=== PATIENT | male | born 1940 | race Caucasian/White ===

== ENCOUNTER 2016-10-18 07:15 | Inpatient (IN) | payer MEDICARE, BC ==
[~2016-10-18] VITALS: Ht 182.9 cm; Wt 81.5 kg
[2016-10-18] MEDS ORDERED: TOPROL XL 50MG50 MG PO (07:33)
[2016-10-18] MEDS ORDERED: ASPIRIN E.C. 8181 MG PO (07:33)
[2016-10-18] MEDS ORDERED: PRINIVIL10 MG PO (07:33)
[2016-10-18] MEDS ORDERED: FISH OIL 1000MG1 CAP PO (07:34)
[2016-10-18] MEDS ORDERED: FORTAMET500 M1 PO (07:34)
[2016-10-18 07:57] LABS: BASO # 0.1 (0.0-0.2); BASO % 0.9 % (0.0-2.0); EOS # 0.5 (0.0-0.7); EOS % 8.1 % (0-4.0); GRAN # 3.4 (1.4-6.5); GRAN % 59.6 % (42.2-75.2); HEMATOCRIT 43.5 % (42.0-52.0); HEMOGLOBIN 14.9 g/dl (13.5-18.0); LYMPH # 1.2 (1.2-3.4); LYMPH % 21.6 % (20.0-51.0); MEAN CELL VOLUME 95 fl (80.0-100.0); MEAN CORPUSCULAR HEMOGLOBIN 33 pg (27.0-31.0); MEAN CORPUSCULAR HGB CONC 34 g/dl (33.0-37.0); MEAN PLATELET VOLUME 11.4 fl (7.4-10.4); MONO # 0.6 (0.1-0.6); MONO % 9.6 % (1.7-9.3); PLATELET COUNT 213 K/mm3 (130-400); RED BLOOD COUNT 4.59 M/mm3 (4.20-5.60); REDCELL DISTRIBUTION WIDTH-CV 12.8 % (11.5-14.5); WHITE BLOOD COUNT 5.7 K/mm3 (4.8-10.8)
[2016-10-18] MEDS ORDERED: MULTI VITAMINS1 TAB PO (08:00)
[2016-10-18] MEDS ORDERED: AMARYL4 MG PO (08:00)
[2016-10-18] MEDS ORDERED: TOPROL XL 25MG25 MG PO (08:00)
[2016-10-18] MEDS ORDERED: LIPITOR 80MG80 MG PO (08:01)
[2016-10-18] MEDS ORDERED: GLUCOPHAGE500 MG/TAB PO (08:01)
[2016-10-18 08:13] LABS: ADJUSTED CALCIUM 9.5 mg/dL (8.4-10.2); ALANINE AMINOTRANSFERASE 29 U/L (21-72); ALBUMIN 4.3 gm/dL (3.5-5.0); ALKALINE PHOSPHATASE 100 U/L (50-136); ANION GAP 15 mmol/L (7-16); BILIRUBIN,TOTAL 0.5 mg/dL (0.0-1.0); BLOOD UREA NITROGEN 22 mg/dL (9-20); CALCIUM 9.7 mg/dL (8.4-10.2); CARBON DIOXIDE 22 mmol/L (22-30); CHLORIDE 102 mmol/L (98-107); CREATINE KINASE 32 U/L (55-170); CREATININE, serum 0.98 mg/dL (0.66-1.25); GLUCOSE 229 mg/dL (74-106); POTASSIUM 4.8 mmol/L (3.4-5.0); SODIUM 139 mmol/L (137-145); TOTAL PROTEIN 7.1 gm/dL (6.4-8.2)
[2016-10-18 08:21] LABS: INR 1.1 (0.8-3.0)
[2016-10-18 08:24] LABS: B-TYPE NATRIURETIC PEPTIDE 1240 pg/mL (0-450); TROPONIN-I < 0.012 ng/mL (0.000-0.034)
[2016-10-18 11:01] VITALS: BP 131/77; PULSE 78; TEMP 97.9
[2016-10-18 17:15] VITALS: BP 117/68; PULSE 88; TEMP 97.9
[2016-10-18 19:30] VITALS: BP 111/79; PULSE 74; TEMP 98.7
[2016-10-18 23:08] VITALS: BP 110/72; PULSE 79; TEMP 97.9
[2016-10-19] VITALS (11 sets, daily range): BP systolic 83–136; BP diastolic 60–96; PULSE 62–89; TEMP 97.7–98.4
[2016-10-19 08:38] LABS: ANION GAP 14 mmol/L (7-16); BLOOD UREA NITROGEN 19 mg/dL (9-20); CALCIUM 9.5 mg/dL (8.4-10.2); CARBON DIOXIDE 26 mmol/L (22-30); CHLORIDE 99 mmol/L (98-107); GLUCOSE 171 mg/dL (74-106); MAGNESIUM 1.4 mg/dL (1.6-2.3); POTASSIUM 4.7 mmol/L (3.4-5.0); SODIUM 139 mmol/L (137-145)
[2016-10-19 08:47] LABS: TROPONIN-I < 0.012 ng/mL (0.000-0.034)
[2016-10-20 02:52] VITALS: BP 110/67; PULSE 64; TEMP 98.1
[2016-10-20 07:56] VITALS: BP 118/55; PULSE 71; TEMP 98.2
[2016-10-20 08:07] LABS: ADJUSTED CALCIUM 8.8 mg/dL (8.4-10.2); ALBUMIN 3.9 gm/dL (3.5-5.0); BILIRUBIN,TOTAL 0.8 mg/dL (0.0-1.0); CALCIUM 8.7 mg/dL (8.4-10.2); CREATININE, serum 0.95 mg/dL (0.66-1.25); MAGNESIUM 1.9 mg/dL (1.6-2.3); POTASSIUM 4.4 mmol/L (3.4-5.0); TOTAL PROTEIN 6.7 gm/dL (6.4-8.2)
[2016-10-20 11:16] VITALS: BP 124/77; PULSE 69; TEMP 98.2
[2016-10-20 15:31] VITALS: BP 126/81; PULSE 58; TEMP 98
[2016-10-20 18:49] VITALS: BP 116/71; PULSE 50; TEMP 98.3
[2016-10-20 23:24] VITALS: BP 97/54; PULSE 62; TEMP 97.7
[2016-10-21] VITALS (7 sets, daily range): BP systolic 105–120; BP diastolic 50–63; PULSE 35–62; TEMP 97.5–98.1
[2016-10-21 07:35] LABS: BASO % 0.7 % (0.0-2.0); EOS # 0.4 (0.0-0.7); EOS % 8.6 % (0-4.0); GRAN # 2.6 (1.4-6.5); GRAN % 60.2 % (42.2-75.2); HEMATOCRIT 40.3 % (42.0-52.0); HEMOGLOBIN 13.5 g/dl (13.5-18.0); LYMPH # 0.8 (1.2-3.4); LYMPH % 18.4 % (20.0-51.0); MEAN CELL VOLUME 95 fl (80.0-100.0); MEAN CORPUSCULAR HEMOGLOBIN 32 pg (27.0-31.0); MEAN CORPUSCULAR HGB CONC 34 g/dl (33.0-37.0); MEAN PLATELET VOLUME 11.6 fl (7.4-10.4); MONO # 0.5 (0.1-0.6); MONO % 11.4 % (1.7-9.3); PLATELET COUNT 181 K/mm3 (130-400); RED BLOOD COUNT 4.25 M/mm3 (4.20-5.60); REDCELL DISTRIBUTION WIDTH-CV 12.5 % (11.5-14.5); WHITE BLOOD COUNT 4.3 K/mm3 (4.8-10.8)
[2016-10-21 07:47] LABS: CREATININE, serum 1.02 mg/dL (0.66-1.25); MAGNESIUM 1.9 mg/dL (1.6-2.3); POTASSIUM 4.3 mmol/L (3.4-5.0)
[2016-10-22 03:31] VITALS: BP 115/68; PULSE 58; TEMP 97.7
[2016-10-22 08:09] LABS: BASO % 0.9 % (0.0-2.0); EOS # 0.5 (0.0-0.7); EOS % 11.5 % (0-4.0); GRAN # 2.4 (1.4-6.5); GRAN % 53.5 % (42.2-75.2); HEMOGLOBIN 13.6 g/dl (13.5-18.0); LYMPH # 0.9 (1.2-3.4); MEAN CELL VOLUME 95 fl (80.0-100.0); MEAN CORPUSCULAR HEMOGLOBIN 32 pg (27.0-31.0); MEAN CORPUSCULAR HGB CONC 34 g/dl (33.0-37.0); MEAN PLATELET VOLUME 11.7 fl (7.4-10.4); MONO # 0.6 (0.1-0.6); MONO % 13.1 % (1.7-9.3); PLATELET COUNT 181 K/mm3 (130-400); RED BLOOD COUNT 4.22 M/mm3 (4.20-5.60); REDCELL DISTRIBUTION WIDTH-CV 12.5 % (11.5-14.5); WHITE BLOOD COUNT 4.4 K/mm3 (4.8-10.8)
[2016-10-22 08:25] VITALS: BP 106/66; PULSE 67; TEMP 98.1
[2016-10-22 08:25] LABS: CALCIUM 9.5 mg/dL (8.4-10.2); CREATININE, serum 0.98 mg/dL (0.66-1.25); MAGNESIUM 1.8 mg/dL (1.6-2.3); POTASSIUM 4.3 mmol/L (3.4-5.0)
[2016-10-22] MEDS ORDERED: BETAPACE 80MG80 MG PO (10:28)
[2016-10-22] MEDS ORDERED: XARELTO20 MG PO (10:28)
[2016-10-22] MEDS ORDERED: ZESTRIL2.5 MG PO (10:28)
== END 2016-10-22 13:50 | disposition home or self-care (01) | DRG 310 ==
LOC: COL.ER 07:15 → PEDS 08:41
PROVIDERS: Emergency Medicine; Internal Medicine Cardiovascular Disease
PROC: 5A2204Z Restoration of Cardiac Rhythm, Single (ICD-10-PCS; principal; 2016-10-19)
DX: I48.0 Paroxysmal atrial fibrillation (principal); I25.10 Atherosclerotic heart disease of native coronary artery without angina pectoris; E11.9 Type 2 diabetes mellitus without complications; E78.5 Hyperlipidemia, unspecified; Z79.84 Long term (current) use of oral hypoglycemic drugs; Z95.5 Presence of coronary angioplasty implant and graft
CPT/HCPCS: 99231-AI; 99232-AI; 99239; G0378; J1650; J1940; J2250; J3010; J3475; J7030

== ENCOUNTER 2017-02-09 08:04 | Emergency (ER) | payer MEDICARE, BC ==
[~2017-02-09] VITALS: Ht 188 cm; Wt 90.9 kg
[~2017-02-09 08:04] MED LIST: AMARYL4 MG PO; ASPIRIN E.C. 8181 MG PO; BETAPACE 80MG80 MG PO; FISH OIL 1000MG1 CAP PO; FORTAMET500 M1 PO; GLUCOPHAGE500 MG/TAB PO; LIPITOR 80MG80 MG PO; MULTI VITAMINS1 TAB PO; PRINIVIL10 MG PO; TOPROL XL 25MG25 MG PO; TOPROL XL 50MG50 MG PO; XARELTO20 MG PO; ZESTRIL2.5 MG PO
[2017-02-09 08:36] VITALS: TEMP 97.6
[2017-02-09 08:46] LABS: BASO # 0.1 (0.0-0.2); BASO % 0.8 % (0.0-2.0); EOS # 0.4 (0.0-0.7); EOS % 6.3 % (0-4.0); GRAN # 4.1 (1.4-6.5); GRAN % 63.1 % (42.2-75.2); HEMATOCRIT 45.4 % (42.0-52.0); HEMOGLOBIN 15.6 g/dl (13.5-18.0); INR 1.5 (0.8-3.0); LYMPH # 1.3 (1.2-3.4); LYMPH % 20.8 % (20.0-51.0); MEAN CELL VOLUME 96 fl (80.0-100.0); MEAN CORPUSCULAR HEMOGLOBIN 33 pg (27.0-31.0); MEAN CORPUSCULAR HGB CONC 34 g/dl (33.0-37.0); MEAN PLATELET VOLUME 11.8 fl (7.4-10.4); MONO # 0.6 (0.1-0.6); MONO % 8.8 % (1.7-9.3); PLATELET COUNT 200 K/mm3 (130-400); PROTHROMBIN TIME 16.7 SECONDS (9.7-12.8); RED BLOOD COUNT 4.74 M/mm3 (4.20-5.60); REDCELL DISTRIBUTION WIDTH-CV 13.4 % (11.5-14.5); WHITE BLOOD COUNT 6.4 K/mm3 (4.8-10.8)
[2017-02-09 08:51] LABS: ADJUSTED CALCIUM 9.4 mg/dL (8.4-10.2); ALANINE AMINOTRANSFERASE 34 U/L (21-72); ALBUMIN 4.2 gm/dL (3.5-5.0); ALKALINE PHOSPHATASE 64 U/L (50-136); ANION GAP 11 mmol/L (7-16); BLOOD UREA NITROGEN 19 mg/dL (9-20); CALCIUM 9.6 mg/dL (8.4-10.2); CARBON DIOXIDE 22 mmol/L (22-30); CHLORIDE 104 mmol/L (98-107); CREATININE, serum 0.92 mg/dL (0.66-1.25); GLUCOSE 183 mg/dL (74-106); POTASSIUM 4.4 mmol/L (3.4-5.0); SODIUM 137 mmol/L (137-145); TOTAL PROTEIN 7.1 gm/dL (6.4-8.2)
[2017-02-09 09:03] LABS: B-TYPE NATRIURETIC PEPTIDE 1670 pg/mL (0-450)
[2017-02-09 09:22] LABS: TROPONIN-I < 0.012 ng/mL (0.000-0.034)
[2017-02-09 12:33] VITALS: BP 113/74; PULSE 58
== END 2017-02-09 12:34 | disposition home or self-care (01) ==
LOC: COL.ER 08:04
PROVIDERS: Emergency Medicine
DX: I48.0 Paroxysmal atrial fibrillation (principal); E11.9 Type 2 diabetes mellitus without complications; E78.5 Hyperlipidemia, unspecified; I25.10 Atherosclerotic heart disease of native coronary artery without angina pectoris; Z95.5 Presence of coronary angioplasty implant and graft; Z79.01 Long term (current) use of anticoagulants; Z79.84 Long term (current) use of oral hypoglycemic drugs; Z87.891 Personal history of nicotine dependence

== ENCOUNTER 2017-03-11 06:26 | Emergency (ER) | payer MEDICARE, BC ==
[~2017-03-11] VITALS: Ht 182.9 cm; Wt 81.8 kg
[2017-03-11 06:33] VITALS: TEMP 97.1
[2017-03-11] MEDS ORDERED: ZESTRIL2.5 MG PO (07:00)
[2017-03-11] MEDS ORDERED: AMARYL4 MG PO (07:00)
[2017-03-11] MEDS ORDERED: GLUCOPHAGE500 MG/TAB PO (07:02)
[2017-03-11 07:04] LABS: BASO # 0.1 (0.0-0.2); EOS # 0.7 (0.0-0.7); EOS % 10.8 % (0-4.0); GRAN # 3.3 (1.4-6.5); GRAN % 54.9 % (42.2-75.2); HEMATOCRIT 41.1 % (42.0-52.0); HEMOGLOBIN 14.3 g/dl (13.5-18.0); LYMPH # 1.3 (1.2-3.4); MEAN CELL VOLUME 96 fl (80.0-100.0); MEAN CORPUSCULAR HEMOGLOBIN 33 pg (27.0-31.0); MEAN CORPUSCULAR HGB CONC 35 g/dl (33.0-37.0); MEAN PLATELET VOLUME 11.4 fl (7.4-10.4); MONO # 0.7 (0.1-0.6); MONO % 11.1 % (1.7-9.3); PLATELET COUNT 165 K/mm3 (130-400); RED BLOOD COUNT 4.28 M/mm3 (4.20-5.60); REDCELL DISTRIBUTION WIDTH-CV 13.1 % (11.5-14.5)
[2017-03-11] MEDS ORDERED: EPA FISH OIL1 SGL PO (07:06)
[2017-03-11] MEDS ORDERED: MULTI VITAMINS1 TAB PO (07:07)
[2017-03-11 07:09] LABS: INR 1.7 (0.8-3.0); PROTHROMBIN TIME 19.3 SECONDS (9.7-12.8)
[2017-03-11 07:17] LABS: ALANINE AMINOTRANSFERASE 30 U/L (21-72); ALBUMIN 4.4 gm/dL (3.5-5.0); ALKALINE PHOSPHATASE 66 U/L (50-136); ANION GAP 11 mmol/L (7-16); AST,SGOT 29 U/L (15-37); BILIRUBIN,TOTAL 0.5 mg/dL (0.0-1.0); BLOOD UREA NITROGEN 24 mg/dL (9-20); CARBON DIOXIDE 23 mmol/L (22-30); CHLORIDE 106 mmol/L (98-107); CREATININE, serum 1.09 mg/dL (0.66-1.25); GLUCOSE 156 mg/dL (74-106); POTASSIUM 4.5 mmol/L (3.4-5.0); SODIUM 140 mmol/L (137-145); TOTAL PROTEIN 7.1 gm/dL (6.4-8.2)
[2017-03-11 07:32] LABS: TROPONIN-I < 0.012 ng/mL (0.000-0.034)
[2017-03-11 08:13] VITALS: BP 150/87; PULSE 60
== END 2017-03-11 08:14 | disposition home or self-care (01) ==
LOC: COL.ER 06:26
PROVIDERS: Emergency Medicine
DX: I48.91 Unspecified atrial fibrillation (principal); E11.9 Type 2 diabetes mellitus without complications; Z90.89 Acquired absence of other organs; Z95.5 Presence of coronary angioplasty implant and graft; Z79.82 Long term (current) use of aspirin; Z79.84 Long term (current) use of oral hypoglycemic drugs

== ENCOUNTER 2017-09-12 07:12 | Outpatient (CLI) | payer MEDICARE, BC ==
[~2017-09-12] VITALS: Ht 183 cm; Wt 79.6 kg
[~2017-09-12 07:12] MED LIST changes: +EPA FISH OIL1 SGL PO
[2017-09-12 08:12] VITALS: BP 124/75; PULSE 117; TEMP 97.7
[2017-09-12] MEDS ORDERED: ONGLYZA5 MG PO (08:16)
[2017-09-12] MEDS ORDERED: XARELTO20 MG PO (08:17)
== END 2017-09-12 10:26 | disposition home or self-care (01) ==
LOC: COL.CAR 07:12
DX: I48.1 Persistent atrial fibrillation (principal); I10 Essential (primary) hypertension; I25.10 Atherosclerotic heart disease of native coronary artery without angina pectoris; E11.9 Type 2 diabetes mellitus without complications; E78.5 Hyperlipidemia, unspecified; Z96.652 Presence of left artificial knee joint; Z95.5 Presence of coronary angioplasty implant and graft; Z79.01 Long term (current) use of anticoagulants; Z79.82 Long term (current) use of aspirin; Z82.49 Family history of ischemic heart disease and other diseases of the circulatory system; Z82.3 Family history of stroke

== ENCOUNTER 2022-03-29 10:00 | Emergency (ER) | payer MEDICARE, BC ==
[~2022-03-29] VITALS: Ht 182.9 cm; Wt 75.0 kg
[~2022-03-29 10:00] MED LIST changes: +ONGLYZA5 MG PO
[2022-03-29 10:25] VITALS: TEMP 98.1
[2022-03-29 12:30] VITALS: BP 175/83; PULSE 61
== END 2022-03-29 12:30 | disposition home or self-care (01) ==
LOC: COL.ER 10:00
DX: S05.12XA Contusion of eyeball and orbital tissues, left eye, initial encounter (principal); S80.02XA Contusion of left knee, initial encounter; S60.222A Contusion of left hand, initial encounter; Z79.82 Long term (current) use of aspirin; W01.198A Fall on same level from slipping, tripping and stumbling with subsequent striking against other object, initial encounter; Y93.01 Activity, walking, marching and hiking